=== PATIENT | male | born 2005 | race Caucasian/White ===

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

== ENCOUNTER 2023-01-26 11:53 | Emergency (ER) | payer OTHER, MEDICAID ==
[2023-01-26] MEDS ORDERED: Sodium Chloride 0.9% 10 ML Syringe FLUSH PRN (12:03)
[2023-01-26] MEDS ORDERED: Iopamidol 612 MG/ML 100 ML Bottle IV PRN (12:09)
[2023-01-26] MEDS ORDERED: Sodium Chloride 0.9% 10 ML SDV FLUSH ONE (12:09)
[2023-01-26 12:11] LABS: BASOPHILS ABSOLUTE AUTO 0.08 K/uL (0.00-0.10); BASOPHILS PERCENT AUTO 0.6 % (0.1-1.3); EOSINOPHILS ABSOLUTE AUTO 0.09 K/uL (0.00-0.40); EOSINOPHILS PERCENT AUTO 0.6 % (0.0-5.4); HEMATOCRIT 43.7 % (38.4-49.7); HEMOGLOBIN 15.5 g/dL (12.9-16.9); IMMATURE GRAN ABSOLUTE AUTO 0.21 K/uL (0.00-0.23); IMMATURE GRAN PERCENT AUTO 1.5 % (0.0-0.7); LYMPHOCYTES ABSOLUTE AUTO 2.74 K/uL (0.8-3.3); MEAN CORPUSCULAR HEMOGLOBIN 30.9 pg (31.6-35.5); MEAN CORPUSCULAR HGB CONC 35.5 g/dL (31.6-35.5); MEAN CORPUSCULAR VOLUME 87.2 fL (81.4-99.0); MONOCYTES ABSOLUTE AUTO 0.91 K/uL (0.20-0.90); MONOCYTES PERCENT AUTO 6.3 % (3.3-12.6); NEUTROPHILS ABSOLUTE AUTO 10.39 K/uL (1.0-7.6); PLATELET COUNT,PLT 389 K/uL (130-375); RED BLOOD CELL COUNT 5.01 M/uL (4.14-5.76); WHITE BLOOD CELL COUNT,WBC 14.4 K/uL (3.2-11.0)
[2023-01-26] MEDS ORDERED: Sodium Chloride 0.9% 100 ML IV SCH (12:15)
[2023-01-26 12:32] LABS: INR 1.1; PTT,PARTIAL THROMBOPLSTIN TIME 24.4 sec (21.8-27.3)
[2023-01-26 12:34] LABS: A/G RATIO 1.1 (1.2-2.2); ALANINE AMINOTRANSFERASE,ALT 384 U/L (12-78); ALBUMIN 4.3 g/dL (3.4-5.0); ALKALINE PHOSPHATASE 119 U/L (46-116); ASPARTATE AMNIOTRANSFERASE,AST 299 U/L (15-37); BILIRUBIN TOTAL 1.6 mg/dL (0.2-1.0); BLOOD UREA NITROGEN,BUN 21 mg/dL (7-18); CALCIUM 9.3 mg/dL (8.5-10.1); CARBON DIOXIDE,CO2 27 mmol/L (21-32); CHLORIDE,CL 100 mmol/L (100-108); CREATININE 1.1 mg/dL (0.8-1.3); ESTIMATED GFR 99 mL/min (>60); GLUCOSE RANDOM 147 mg/dL (74-106); PROTEIN TOTAL,TP 8.2 g/dL (6.4-8.2); SODIUM,NA 137 mmol/L (140-148)
[2023-01-26] MEDS ORDERED: Bacitracin Oint 1 GM U/D Packet TOP ONE (12:55)
[2023-01-26] MEDS ORDERED: Sodium Chloride 0.9% 1,000 ML IV SCH (13:30)
[2023-01-26] MEDS ORDERED: Lidocaine 1% with EPINEPHrine 1:100,000 50 ML MDV SUBCUT ONE (13:44)
[2023-01-26] MEDS ORDERED: fentaNYL 50 MCG/ML SDV ONE ×2 (14:13→14:16)
[2023-01-26] MEDS ORDERED: fentaNYL 50 MCG/ML SDV IVPUSH ONE ×2 (14:17→14:21)
[2023-01-26] MEDS ORDERED: ceFAZolin 1 GM in Premix Bag 1 BAG IV ONE (14:27)
== END 2023-01-26 15:15 ==
LOC: JP.ED 11:53
DX: S22.41XA Multiple fractures of ribs, right side, initial encounter for closed fracture (principal); S36.116A Major laceration of liver, initial encounter; S27.2XXA Traumatic hemopneumothorax, initial encounter; S20.311A Abrasion of right front wall of thorax, initial encounter; S00.81XA Abrasion of other part of head, initial encounter; W13.2XXA Fall from, out of or through roof, initial encounter
CPT/HCPCS: 32551; 36415; 70450; 71045; 71260; 72125; 74177; 80053; 83605; 85025; 85610; 85730; 96365; 96375; 99285; J0690; J3010; J3490; J7030; Q9967